=== PATIENT | male | born 1960 | race Caucasian/White ===

== ENCOUNTER 2021-03-15 15:47 | Emergency (ER) | payer OTHER ==
[2021-03-15 16:09] LABS: EOS # 0.2 (0.04-0.40); HEMATOCRIT 46.2 % (42.0-52.0); HEMOGLOBIN 16.1 g/dL (13.5-18.0); LYMPH# 2.7 (1.50-4.00); MEAN CELL VOLUME 83 fl (78-100); MEAN CORPUSCULAR HEMOGLOBIN 29 pg (27-31); MEAN CORPUSCULAR HGB CONC 35 g/dL (33-37); MEAN PLATELET VOLUME 9.2 fl (7.4-10.4); MONO # 0.5 (0.20-0.80); NEU # 4.7 (1.40-6.50); PLATELET COUNT 249 K/mm3 (130-400); RED BLOOD COUNT 5.54 M/mm3 (4.20-5.60); RED CELL DISTRIBUTION WIDTH 13.2 % (11.5-14.5); WHITE BLOOD COUNT 8.1 K/mm3 (4.8-10.8)
[2021-03-15 16:21] LABS: ALBUMIN 4.3 g/dL (3.4-4.8); POTASSIUM 3.8 mmol/L (3.5-5.1); SODIUM 138 mmol/L (136-145)
[2021-03-15 16:22] LABS: CALCIUM 9.4 mg/dL (8.3-10.5)
[2021-03-15 16:23] LABS: TOTAL PROTEIN 7.4 g/dL (6.2-8.1)
[2021-03-15 16:24] LABS: CARBON DIOXIDE 22 mmol/L (23-31)
[2021-03-15 16:25] LABS: TOTAL BILIRUBIN 0.6 mg/dL (0.2-1.2)
[2021-03-15 16:28] LABS: AST-SGOT 15 U/L (5-34)
[2021-03-15 16:29] LABS: GLUCOSE 168 mg/dL (75-110)
[2021-03-15 16:30] LABS: ALT/SGPT 26 U/L (0-55)
[2021-03-15 16:47] LABS: TROPONIN-I < 0.03 ng/mL (<0.030)
[2021-03-15] MEDS ORDERED: METOPROLOL SUCC50 M1 PO (20:04)
[2021-03-15 20:29] VITALS: BP 165/96
== END 2021-03-15 20:17 | disposition home or self-care (01) ==
LOC: ED 15:47
PROVIDERS: Physician Assistant
DX: I47.1 Supraventricular tachycardia (principal); R74.8 Abnormal levels of other serum enzymes
CPT/HCPCS: J7030

== ENCOUNTER → 2021-05-13 | Day surgery (SDC) | payer OTHER ==
[~2021-05-13] MED LIST: METOPROLOL SUCC50 M1 PO
== END | disposition home or self-care (01) ==
LOC: MSO 07:22 → EDSTATUS 07:31 → MSO 07:32
DX: D12.4 Benign neoplasm of descending colon (principal); D12.3 Benign neoplasm of transverse colon; D12.8 Benign neoplasm of rectum; K57.30 Diverticulosis of large intestine without perforation or abscess without bleeding; I47.1 Supraventricular tachycardia; C61 Malignant neoplasm of prostate; Z87.891 Personal history of nicotine dependence; Z79.82 Long term (current) use of aspirin
CPT/HCPCS: 00811; J2704; J7120